=== PATIENT | male | born 1965 | race Hispanic/Latino ===

== ENCOUNTER 2016-09-17 14:30 | Emergency (ER) | payer SELFPAY ==
[2016-09-17 14:47] VITALS: BP 135/92
[2016-09-17] MEDS ORDERED: DECADRON IM ONE (16:50)
--- NOTE | 2016-09-17 17:10 | Emergency Department Report ---
ED General Adult HPI - General Chief complaint: Pain General Stated complaint: BODY PAIN Time Seen by Provider: 09/17/16 16:36 Source: patient Mode of arrival: Ambulatory Limitations: No Limitations - History of Present Illness Initial comments: The patient comes in the ER today with complaints of joint pain for the past 3 days. Patient states that he has a 17 year history of rheumatoid arthritis and that sometimes he gets flares up of such. 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 He used to be on methotrexate and Enbrel. Patient states that since moving down to [place], he no longer has insurance and usually goes to the ERs to get some steroids for his RA. Patient denies any injury, chest pain, shortness of breath, fevers. Patient states that his hands, wrists, ankles, knees bother him the most. Patient states that it has been approximately 1.5 months ago since his last flareup. - Related Data Previous Rx's Medication Instructions Recorded Last Taken Type predniSONE [Deltasone] 20 mg PO QDAY #18 tab 09/17/16 Unknown Rx Allergies Allergy/AdvReac Type Severity Reaction Status Date / Time No Known Allergies Allergy Unverified 09/17/16 14:42 ED Review of Systems ROS: Stated complaint: BODY PAIN Other details as noted in HPI Constitutional: denies: chills, fever Eyes: denies: eye pain, eye discharge, vision change ENT: denies: ear pain, throat pain Respiratory: denies: cough, shortness of breath, wheezing Cardiovascular: denies: chest pain, palpitations Endocrine: no symptoms reported Gastrointestinal: denies: abdominal pain, nausea, diarrhea Genitourinary: denies: urgency, dysuria Musculoskeletal: joint swelling, arthralgia. denies: back pain Skin: denies: rash, lesions Neurological: denies: headache, weakness, paresthesias Psychiatric: denies: anxiety, depression Hematological/Lymphatic: denies: easy bleeding, easy bruising ED Past Medical Hx - Past Medical History Hx Arthritis: Yes (RA) - Surgical History Past Surgical History?: No - Social History Smoking Status: Never Smoker Substance Use Type: None - Medications Home Medications: Home Medications Medication Instructions Recorded Confirmed Last Taken Type predniSONE [Deltasone] 20 mg PO QDAY #18 tab 09/17/16 Unknown Rx ED Physical Exam - General Limitations: No Limitations General appearance: alert, in no apparent distress - Head Head exam: Present: atraumatic, normocephalic - Eye Eye exam: Present: normal appearance - ENT ENT exam: Present: mucous membranes moist - Neck Neck exam: Present: normal inspection. Absent: tenderness - Respiratory Respiratory exam: Present: normal lung sounds bilaterally. Absent: respiratory distress, wheezes, rales, rhonchi, decreased breath sounds - Cardiovascular Cardiovascular Exam: Present: regular rate (heart rate auscultated at 80 bpm), normal rhythm, normal heart sounds. Absent: systolic murmur, diastolic murmur, rubs, gallop - GI/Abdominal GI/Abdominal exam: Present: soft, normal bowel sounds. Absent: distended, tenderness - Rectal Rectal exam: Present: deferred - Extremities Exam Extremities exam: Present: tenderness (tenderness noted to bilateral MCP joints of all digits, bilateral wrists, left greater than right ankle.), normal capillary refill, joint swelling (joint swelling to bilateral MCP joints of all digits with 1 through 3 joints being the worst. Left greater than right wrist swelling. Left greater than right ankle swelling). Absent: full ROM (Limited range of motion of digits to bilateral hands secondary to pain), pedal edema, calf tenderness - Back Exam Back exam: Present: normal inspection. Absent: tenderness - Neurological Exam Neurological exam: Present: alert, oriented X3, CN II-XII intact, normal gait, reflexes normal. Absent: motor sensory deficit - Psychiatric Psychiatric exam: Present: normal affect, normal mood - Skin Skin exam: Present: warm, dry, intact, normal color. Absent: rash, cyanosis, erythema, abrasion, ecchymosis ED Course Vital Signs 09/17/16 14:42 Temperature 97.9 F Pulse Rate 116 H Respiratory 18 Rate Blood Pressure 135/92 O2 Sat by Pulse 100 Oximetry ED Medical Decision Making - Medical Decision Making Patient is nontoxic and hemodynamically stable. Examination is consistent with patient's history of rheumatoid arthritis. Patient was given Decadron 10 mg intramuscular here in the ER and I will continue patient on short course of oral prednisone. I will also give patient a referral to rheumatology for maintenance control of his RA. Patient is in agreement with treatment plan and patient is stable for discharge. Critical care attestation.: If time is entered above; I have spent that time in minutes in the direct care of this critically ill patient, excluding procedure time. ED Disposition Clinical Impression: Arthralgia, History of rheumatoid arthritis Disposition: - TO HOME OR SELFCARE Is pt being admited?: No Does the pt Need Aspirin: No Condition: Good Instructions: Rheumatoid Arthritis (ED) Prescriptions: predniSONE [Deltasone] 20 mg PO QDAY #18 tab Referrals: PRIMARY MD BLACK [Primary Care Provider] - 3-5 Days KERMIT GREEN MD [Referring] - 3-5 Days ([place]) [facility] [Outside] - 3-[address] [facility] [Outside] - 3-[address] [facility] [Outside] - 3-5 Days Time of Disposition: 17:17
== END 2016-09-17 17:24 | disposition home or self-care (01) ==
LOC: ED 14:30
DX: M25.532 Pain in left wrist (principal); M25.531 Pain in right wrist; M25.572 Pain in left ankle and joints of left foot; M25.571 Pain in right ankle and joints of right foot; M06.9 Rheumatoid arthritis, unspecified
CPT/HCPCS: 96372; 99282; J1100